=== PATIENT | female | born 1950 | race Two or more races ===

== ENCOUNTER 2019-12-18 20:41 | Inpatient (IN) | payer MEDICARE, OTHER ==
[~2019-12-18] VITALS: Ht 160 cm; Wt 72.1 kg
[2019-12-18 22:00] VITALS: BP 148/68
--- NOTE | 2019-12-18 22:00 | NUR ---
GPS RN-NOTE:ADMISSION ADMITTED A 69-YR OLD FEMALE, FROM [facility]. ADMITTED ON A 5150 FOR DTS. PER HOLD, PT ADMITTED DUE TO SUICIDAL IDEATION WITH A PLAN TO WALK INTO TRAFFIC. UPON FACE TO FACE ASSESSMENT, PATIENT A/OX3, ANXIOUS, CRYING AND ARGUMENTATIVE. AMBULATORY WITH STEADY GAIT. PT WAS ADVISED OF HER HOLD. PT'S RIGHTS HANDBOOK AND A GUIDE TO PRESCRIPTION MEDICATIONS GIVEN. IN NO APPARENT DISTRESS NOTED. PT BELONGINGS WERE INVENTORIED AND CHECKED FOR CONTRABAND. PT. IS UNDER THE PSYCHIATRIC CARE OF DR. BOWMAN ORDERS OBTAINED AND THE MEDICAL CARE OF REY OBREGON. SKIN BODY ASSESSMENT DONE. BED LOCKED AND PLACED IN LOWEST POSITION TO MAINTAIN SAFETY. WILL CONTINUE TO MONITOR Q15 MINS ROUNDS FOR SAFETY AND BEHAVIOR. PATIENT'S DAUGHTER ANDREW JERRY NOTIFIED OF THE ADMISSION. Addendum: 12/19/19 at 0554 by NICOLE HOOD RN PATIENT STATED SHE GOT HER FLU AND PNEUMONIA VACCINE AT [facility] ON 12/17/2019.
[2019-12-18] MEDS ORDERED: MAG HYDROX/AL HYDROX/SIMETH 30 ML UDC PO PRN (22:30)
[2019-12-18] MEDS ORDERED: BLOOD SUGAR DIAGNOSTIC 1 EACH STRIP IN ONE (22:30)
[2019-12-18] MEDS ORDERED: ACETAMINOPHEN 325 MG TABLET PO PRN (22:30)
[2019-12-18] MEDS ORDERED: LORAZEPAM 0.5 MG TABLET PO PRN (22:30)
[2019-12-18] MEDS ORDERED: ACET-907 PO (22:47)
[2019-12-18] MEDS ORDERED: CARV6.252 PO (22:47)
[2019-12-18] MEDS ORDERED: BLOO-1672 MC (22:47)
[2019-12-18] MEDS ORDERED: ATOR20TA PO (22:47)
[2019-12-18] MEDS ORDERED: CLON0.1T PO (22:47)
[2019-12-18] MEDS ORDERED: ASPI-992 PO (22:47)
[2019-12-18] MEDS ORDERED: HYDR-4384 PO (22:47)
[2019-12-18] MEDS ORDERED: ZOLP5TAB2 PO (22:47)
[2019-12-18] MEDS ORDERED: AMLO10TA4 PO (22:47)
[2019-12-18] MEDS ORDERED: DOCU100C36 PO (22:47)
[2019-12-18] MEDS ORDERED: NITR100C6 PO (22:47)
[2019-12-18] MEDS ORDERED: GABA-532 PO (22:47)
[2019-12-18] MEDS ORDERED: PHEN1SUP RC (22:47)
[2019-12-18] MEDS ORDERED: INSU100V39 SQ (22:57)
[2019-12-18] MEDS ORDERED: CARVEDILOL 6.25 MG TABLET PO SCH (23:30)
[2019-12-18] MEDS ORDERED: DOCUSATE SODIUM 100 MG CAPSULE PO PRN (23:30)
[2019-12-18] MEDS ORDERED: CLONIDINE HCL 0.1 MG TABLET PO PRN (23:30)
[2019-12-18] MEDS: TEMAZEPAM 7.5 MG CAPSULE PO PRN (23:50)
--- NOTE | 2019-12-18 23:50 | NUR ---
GPS-RN NOTE: INSOMNIA PATIENT C/O INABILITY TO SLEEP. ADMINISTERED RESTORIL 7.5MG PO ORDERED. WILL CONTINUE TO MONITOR FOR PATIENT'S SAFETY.
[2019-12-19] MEDS ORDERED: INSULIN REGULAR, HUMAN 100 UNIT/ML 3 ML VIAL SQ PRN
[2019-12-19] MEDS ORDERED: DEXTROSE 50%-WATER 50 ML DISP.SYRIN IV PRN ×2
[2019-12-19] MEDS: HYDROCODONE/APAP 5/325MG TABLET PO PRN ×2 (00:50→10:31)
--- NOTE | 2019-12-19 00:50 | NUR ---
GPS-RN NOTE: C/O ABDOMINAL PAIN PATIENT C/O ABDOMINAL PAIN ON A PAIN SCALE OF 7/10. ADMINISTERED NORCO 5/325MG PO ORDERED. WILL CONTINUE TO REASSESS.
[2019-12-19] MEDS ORDERED: INSULIN REGULAR, HUMAN 100 UNIT/ML 3 ML VIAL ONE (01:35)
[2019-12-19] MEDS: *INSULIN REGULAR(HUMULIN R)HUM 100 UNIT/ML VIAL SQ PRN ×3 (02:02→21:52)
[2019-12-19] MEDS ORDERED: BLOOD SUGAR DIAGNOSTIC 1 EACH STRIP VI SCH (07:30)
[2019-12-19 07:36] LABS: CHOLESTEROL 147 mg/dL (<200); HDL CHOLESTEROL 47 mg/dL (40-60); LDL 79 mg/dL (0-99); TRIGLYCERIDES 149 mg/dL (30-150)
[2019-12-19 07:37] LABS: ALBUMIN 3.4 g/dL (3.4-5.0); BILIRUBIN,TOTAL 0.4 mg/dL (0.2-1.0); CALCIUM, SERUM 9.2 mg/dL (8.5-10.1); CREATININE 0.7 mg/dL (0.6-1.3); POTASSIUM 3.6 mmol/L (3.5-5.1); TOTAL PROTEIN, SERUM 7.5 g/dL (6.4-8.2)
[2019-12-19] MEDS: BLOOD SUGAR DIAGNOSTIC 1 EACH STRIP IN SCH ×4 (07:44→21:46)
[2019-12-19 08:00] VITALS: BP 152/70
[2019-12-19] MEDS: ASPIRIN 325 MG TABLET PO SCH (08:46)
[2019-12-19] MEDS: GABAPENTIN 300 MG CAPSULE PO SCH (08:46)
[2019-12-19] MEDS: AMLODIPINE BESYLATE 10 MG TABLET PO SCH (08:46)
[2019-12-19] MEDS: CARVEDILOL 6.25 MG TABLET PO SCH ×2 (08:46→17:43)
[2019-12-19] MEDS ORDERED: GABAPENTIN 100 MG CAPSULE PO SCH ×2 (09:00)
[2019-12-19] MEDS ORDERED: [UNRECOGNIZED DRUG - OTHER] RC SCH (09:00)
[2019-12-19] MEDS ORDERED: PHENYLEPHRINE HCL RC SCH (09:00)
[2019-12-19] MEDS ORDERED: COCOA BUTTER RC SCH (09:00)
--- NOTE | 2019-12-19 10:32 | NUR ---
GPS/RN -NOTES PATIENT C/O 8 RIGHT LOWER ABDOMEN. NORCO 5/325MG 1 TAB. P.O GIVEN PRN ORDER. WILL CONT. MONITORING FOR SAFETY.
[2019-12-19] MEDS: INSULIN REGULAR, HUMAN 100 UNIT/ML 3 ML VIAL SQ PRN ×2 (11:37→17:47)
--- NOTE | 2019-12-19 12:00 | NUR ---
FAMILY CONTACT: SW contacted pts daughter Liliane ([phone]) for treatment and discharge planning. Daughter states pt is able to return back [place] [facility] [address] [facility] [address] where she lives alone. Per daughter, she provides support to pt and states pt has never had any psychiatric hospitalizations but does state that pt current takes antidepressants and states that about 30 years ago pt attempted to commit suicide twice.
--- NOTE | 2019-12-19 14:20 | NUR ---
GROUP NOTE: NAVYA encouraged pt to attend group therapy on this present day. Pt refused stating she didn't want to attend a group due to her wanting to be discharged home due to her not being able to have her phone on the unit. Pt states that she is going "crazy" without her phone and wants it. SW provided empathetic listening and provided her with alternative activities such as reading a book or coloring. Pt refused and stated all she wanted was to play her gambling games on her phone. NAVYA will continue to encourage pt to attend group milieu.
--- NOTE | 2019-12-19 14:25 | NUR ---
INITIAL DISCHARGE PLAN: Pt wishes to return home. Per pts daughter Liliane ([phone]) pt is able to [facility] back [facility] [address] [address] where she lives alone. SW will help form a safe and proper discharge plan in collaboration with .
[2019-12-19 16:00] VITALS: BP 140/71
--- NOTE | 2019-12-19 17:19 | NUR ---
GPS/RN-NOTES RECEIVED T.O [facility]. NOTED AND CARRIED OUT.
[2019-12-19] MEDS ORDERED: ACETAMINOPHEN W/ CODEINE#3 1 EA TABLET PO PRN (18:00)
[2019-12-19 19:52] VITALS: BP 116/58
[2019-12-19] MEDS: NITROFURANTOIN/NITROFURAN MAC 100 MG CAPSULE PO SCH (21:18)
[2019-12-19] MEDS: MIRTAZAPINE 15 MG TABLET PO SCH (21:19)
[2019-12-19] MEDS: ATORVASTATIN 40 MG TABLET PO SCH (21:19)
[2019-12-19] MEDS: PHENYLEPHRINE/SHK LV/MO/PET,WH 30 GM TUBE RC SCH (21:54)
[2019-12-19] MEDS ORDERED: INSULIN GLARGINE, 100 UNIT/ML CARTRIDGE SQ SCH (22:00)
[2019-12-19] MEDS: TEMAZEPAM 7.5 MG CAPSULE PO PRN (22:24)
--- NOTE | 2019-12-19 22:25 | NUR ---
GPS-RN NOTE: INSOMNIA PATIENT C/O INABILITY TO SLEEP. ADMINISTERED RESTORIL 7.5MG PO ORDERED. WILL CONTINUE TO MONITOR FOR PATIENT'S SAFETY.
[2019-12-20] MEDS: CARVEDILOL 6.25 MG TABLET PO SCH ×2 (06:06→16:40)
[2019-12-20 07:13] LABS: BASOPHILS % (AUTO) 0.5 % (0.0-2.0); EOSINOPHILS % (AUTO) 4.3 % (0.0-6.0); HEMATOCRIT 45 % (33-45); HEMOGLOBIN 14.5 g/dL (11.5-14.8); LYMPHOCYTES # (AUTO) 2.1 /CMM (0.8-4.8); LYMPHOCYTES % (AUTO) 26.4 % (20.0-44.0); MEAN CORPUSCULAR HGB CONC 32 g/dl (31.0-36.0); MEAN CORPUSCULAR VOLUME 91 fL (82-100); MONOCYTES # (AUTO) 0.9 /CMM (0.1-1.30); MONOCYTES % (AUTO) 10.9 % (2.0-12.0); NEUTROPHILS # (AUTO) 4.7 /CMM (1.8-8.9); NEUTROPHILS % (AUTO) 57.9 % (43.0-81.0); PLATELET COUNT (AUTO) 248 /CMM (150-450); WHITE BLOOD COUNT (AUTO) 8.1 K/uL (4.3-11.0)
[2019-12-20] MEDS: BLOOD SUGAR DIAGNOSTIC 1 EACH STRIP IN SCH ×4 (07:51→21:26)
[2019-12-20] MEDS: INSULIN REGULAR, HUMAN 100 UNIT/ML 3 ML VIAL SQ PRN ×3 (07:53→17:35)
[2019-12-20 08:00] VITALS: BP 137/67
[2019-12-20] MEDS: NITROFURANTOIN/NITROFURAN MAC 100 MG CAPSULE PO SCH ×2 (08:07→21:15)
[2019-12-20] MEDS: ASPIRIN 325 MG TABLET PO SCH (08:07)
[2019-12-20] MEDS: GABAPENTIN 300 MG CAPSULE PO SCH (08:07)
[2019-12-20] MEDS: AMLODIPINE BESYLATE 10 MG TABLET PO SCH (08:08)
[2019-12-20 08:24] LABS: POTASSIUM 3.7 mmol/L (3.5-5.1)
[2019-12-20 08:25] LABS: CALCIUM, SERUM 9.1 mg/dL (8.5-10.1); CREATININE 0.7 mg/dL (0.6-1.3); MAGNESIUM 1.9 mg/dL (1.8-2.4); PHOSPHORUS 2.9 mg/dL (2.5-4.9)
[2019-12-20] MEDS: HYDROCODONE/APAP 5/325MG TABLET PO PRN ×2 (13:57→23:29)
[2019-12-20 20:02] VITALS: BP 146/74
--- NOTE | 2019-12-20 20:12 | NUR ---
GPS RN NOTE: Received patient from morning nurse. Patient in bed, awake and alert. Able to make needs known. Patient does not complain of pain or discomfort at this time. Patient breathing well, no SOB or acute respiratory distress. Breathing equal and unlabored. Patient ambulatory with steady gait. Safety precaution in place, bed in the lowest level, bed is locked, side rails x2 are up, and call light is within reach. Will continue to monitor.
[2019-12-20] MEDS: MIRTAZAPINE 15 MG TABLET PO SCH (21:14)
[2019-12-20] MEDS: ATORVASTATIN 40 MG TABLET PO SCH (21:15)
[2019-12-20] MEDS: PHENYLEPHRINE/SHK LV/MO/PET,WH 30 GM TUBE RC SCH (21:15)
[2019-12-20] MEDS: *INSULIN REGULAR(HUMULIN R)HUM 100 UNIT/ML VIAL SQ PRN (21:25)
[2019-12-20] MEDS ORDERED: INSULIN GLARGINE, 100 UNIT/ML CARTRIDGE SQ SCH ×2 (22:00)
[2019-12-20] MEDS: TEMAZEPAM 7.5 MG CAPSULE PO PRN (23:19)
--- NOTE | 2019-12-20 23:19 | NUR ---
Patient complains of pain on the side of her groin. Patient rates pain a 3 on a 0-10 numerical scale and describes it as burning. Administered PRN Tylenol per MD order. Will continue to monitor.
--- NOTE | 2019-12-20 23:20 | NUR ---
Patient verbalized difficulty sleeping. Administered PRN restoril per MD order. Will continue to monitor.
--- NOTE | 2019-12-20 23:24 | NUR ---
PRN Tylenol was not given. Patient refused.
--- NOTE | 2019-12-20 23:29 | NUR ---
Patient complains of pain on her groin area. Patient rates pain 4 on a 0-10 numerical scale and describes it as burning. Administered PRN [place] per MD order. Will continue to monitor.
[2019-12-20] MEDS ORDERED: Z GUARD REMEDY 2 OZ OINT TP PRN (23:30)
[2019-12-21] MEDS: CARVEDILOL 6.25 MG TABLET PO SCH ×2 (05:51→16:17)
[2019-12-21 05:52] VITALS: BP 131/58
[2019-12-21] MEDS: BLOOD SUGAR DIAGNOSTIC 1 EACH STRIP IN SCH ×4 (08:09→20:56)
[2019-12-21] MEDS: NITROFURANTOIN/NITROFURAN MAC 100 MG CAPSULE PO SCH ×2 (08:11→21:30)
[2019-12-21] MEDS: ASPIRIN 325 MG TABLET PO SCH (08:11)
[2019-12-21] MEDS: GABAPENTIN 300 MG CAPSULE PO SCH (08:11)
[2019-12-21] MEDS: AMLODIPINE BESYLATE 10 MG TABLET PO SCH (08:12)
[2019-12-21 08:27] VITALS: BP 139/76
[2019-12-21] MEDS: INSULIN REGULAR, HUMAN 100 UNIT/ML 3 ML VIAL SQ PRN ×2 (12:17→17:13)
[2019-12-21 16:00] VITALS: BP 132/78
[2019-12-21] MEDS: HYDROCODONE/APAP 5/325MG TABLET PO PRN (17:56)
--- NOTE | 2019-12-21 19:00 | NUR ---
RECEIVED AWAKE AND ALERT TO WHERE SHE IS. NOTED HER AMBULATION STEADY GAIT' 02 SATS 98% ROOM AIR SKIN WARM AND DRY. SPEECH CLEAR AND TALKING LOGICAL. SMILES AND TALKS TO THE OTHER PATIENTS. SHE TOLD ME ABOUT HER HEMMORHOIDS! SHE IS CALM AND COOPERATIVE AT THIS TIME. SHE IS AWARE WHERE HER ROOM IS.
[2019-12-21 19:44] VITALS: BP 139/76
[2019-12-21 20:28] VITALS: BP 130/56
[2019-12-21] MEDS: INSULIN GLARGINE, 100 UNIT/ML CARTRIDGE SQ SCH (21:25)
[2019-12-21] MEDS: *INSULIN REGULAR(HUMULIN R)HUM 100 UNIT/ML VIAL SQ PRN (21:29)
[2019-12-21] MEDS: ATORVASTATIN 40 MG TABLET PO SCH (21:30)
[2019-12-21] MEDS: MIRTAZAPINE 15 MG TABLET PO SCH (21:30)
[2019-12-21] MEDS: PHENYLEPHRINE/SHK LV/MO/PET,WH 30 GM TUBE RC SCH (21:31)
--- NOTE | 2019-12-22 04:44 | NUR ---
CLOSING NOTES: HS BLOOD SUGAR 257 COVERAGE GIVEN ORDERED. PREPH CRM GIVEN FOR HER HEMMORIODS STEADY GAIT. NO TALK OF SUICIDAL PLANNING CHEERFUL TALKATIVE RE: HER DIABETES, HOW SHE MANAGES IT HERSELF AT HOME. SLEPT AFTER RESTORIL GIVEN NORCO GIVEN FOR BACK PAIN AND EFFECTIVE
[2019-12-22] MEDS: CARVEDILOL 6.25 MG TABLET PO SCH ×2 (06:40→17:18)
[2019-12-22 08:00] VITALS: BP 115/61
[2019-12-22] MEDS: BLOOD SUGAR DIAGNOSTIC 1 EACH STRIP IN SCH ×4 (08:23→21:42)
[2019-12-22] MEDS: GABAPENTIN 300 MG CAPSULE PO SCH (08:25)
[2019-12-22] MEDS: ASPIRIN 325 MG TABLET PO SCH (08:25)
[2019-12-22] MEDS: AMLODIPINE BESYLATE 10 MG TABLET PO SCH (08:25)
[2019-12-22] MEDS: NITROFURANTOIN/NITROFURAN MAC 100 MG CAPSULE PO SCH ×2 (08:25→21:30)
--- NOTE | 2019-12-22 12:18 | NUR ---
GPS/RN [facility] UNIT COORDINATOR MADE AWARE OF PT'S BS 409 AND COVERAGE WITH 1O UNITS OF INSULIN. NO ADDITION ORDERS , GERARDO WILL SEE THE PT LATER
[2019-12-22 16:00] VITALS: BP 113/73
[2019-12-22] MEDS: INSULIN REGULAR, HUMAN 100 UNIT/ML 3 ML VIAL SQ PRN ×2 (17:21→21:46)
[2019-12-22] MEDS: INSULIN ASPART/LISPRO 100 UNIT/ML CARTRIDGE SQ SCH (18:43)
[2019-12-22 20:00] VITALS: BP 146/69
[2019-12-22] MEDS: HYDROCODONE/APAP 5/325MG TABLET PO PRN (20:12)
--- NOTE | 2019-12-22 20:12 | NUR ---
GPS RN NOTE: PAIN PT WAS C/O OF 10/23 LOWER BACK PAIN, REQUESTED ALEX, ADMIN ALEX TAYLOR @ 2013, VSS, PT TOLERATED MEDICATION, WILL REASSESS AND CONTINUE TO MONITOR Q15MIN FOR SAFETY AND BEHAVIOR Addendum: 12/22/19 at 2014 by ENRICO LEE RN CORRECTION ADMIN @ 2011
[2019-12-22] MEDS: ATORVASTATIN 40 MG TABLET PO SCH (21:30)
[2019-12-22] MEDS: MIRTAZAPINE 15 MG TABLET PO SCH (21:30)
[2019-12-22] MEDS: PHENYLEPHRINE/SHK LV/MO/PET,WH 30 GM TUBE RC SCH (21:31)
[2019-12-22] MEDS: INSULIN GLARGINE, 100 UNIT/ML CARTRIDGE SQ SCH (21:45)
[2019-12-22] MEDS: TEMAZEPAM 7.5 MG CAPSULE PO PRN (22:28)
--- NOTE | 2019-12-22 22:29 | NUR ---
GPS RN NOTE: INSOMNIA PT WAS C/O OF INSOMNIA, REQUESTED SLEEPING PILL, VSS, ADMIN RESTORIL 7.5 MG PRN @ 2228, WILL REASSESS AND CONTINUE TO MONITOR Q15MIN FOR SAFETY AND BEHAVIOR.
[2019-12-23] MEDS: CARVEDILOL 6.25 MG TABLET PO SCH ×2 (06:00→17:23)
[2019-12-23] MEDS: BLOOD SUGAR DIAGNOSTIC 1 EACH STRIP IN SCH ×4 (06:59→21:23)
[2019-12-23] MEDS: INSULIN REGULAR, HUMAN 100 UNIT/ML 3 ML VIAL SQ PRN ×2 (06:59→11:58)
[2019-12-23 08:00] VITALS: BP 148/74
[2019-12-23] MEDS: ASPIRIN 325 MG TABLET PO SCH (08:39)
[2019-12-23] MEDS: NITROFURANTOIN/NITROFURAN MAC 100 MG CAPSULE PO SCH ×2 (08:40→21:22)
[2019-12-23] MEDS: AMLODIPINE BESYLATE 10 MG TABLET PO SCH (08:40)
[2019-12-23] MEDS: GABAPENTIN 300 MG CAPSULE PO SCH (08:40)
[2019-12-23] MEDS: INSULIN ASPART/LISPRO 100 UNIT/ML CARTRIDGE SQ SCH ×2 (08:45→17:16)
--- NOTE | 2019-12-23 09:00 | NUR ---
RN NOTE-PT VISIBLE ON UNIT, INTERACTIVE W PEERS AND STAFF, MED COMPLIANT, PO INTAKE IS GOOD CURRENTLY DENYING SI HI AH VH.
[2019-12-23 14:02] LABS: BASOPHILS # (AUTO) 0.1 /CMM (0.0-0.2); BASOPHILS % (AUTO) 0.7 % (0.0-2.0); EOSINOPHILS % (AUTO) 4.1 % (0.0-6.0); HEMATOCRIT 42 % (33-45); HEMOGLOBIN 13.8 g/dL (11.5-14.8); LYMPHOCYTES % (AUTO) 26.5 % (20.0-44.0); MEAN CORPUSCULAR HGB CONC 33 g/dl (31.0-36.0); MEAN CORPUSCULAR VOLUME 90 fL (82-100); MONOCYTES # (AUTO) 0.6 /CMM (0.1-1.30); MONOCYTES % (AUTO) 8.1 % (2.0-12.0); NEUTROPHILS # (AUTO) 4.5 /CMM (1.8-8.9); NEUTROPHILS % (AUTO) 60.6 % (43.0-81.0); PLATELET COUNT (AUTO) 221 /CMM (150-450); RED BLOOD CELL COUNT(AUTO) 4.62 MIL/uL (4.0-5.2); WHITE BLOOD COUNT (AUTO) 7.4 K/uL (4.3-11.0)
[2019-12-23 14:22] LABS: CALCIUM, SERUM 9.2 mg/dL (8.5-10.1); CREATININE 0.8 mg/dL (0.6-1.3); PHOSPHORUS 3.5 mg/dL (2.5-4.9); POTASSIUM 3.7 mmol/L (3.5-5.1)
--- NOTE | 2019-12-23 14:43 | NUR ---
GROUP NOTE: SW encouraged pt to attend group therapy on this present day. Pt was asleep and not easily roused by verbal cues.
--- NOTE | 2019-12-23 15:05 | NUR ---
RN NOTE- LAB CALLED [facility], BS-371. REY AGUILERA NOTIFIED. ORDERED NOVOLOG/HUMALOG CHANGED FROM 6 UNITS BID AFTER MEALS TO 6 UNITS TID AFTER MEALS. DULY NOTED.
[2019-12-23 16:00] VITALS: BP 142/76
[2019-12-23] MEDS: MAGNESIUM HYDROXIDE 30 ML UDC PO PRN (18:31)
--- NOTE | 2019-12-23 18:32 | NUR ---
RN NOTE- PT C/O NO BM SINCE YESTERDAY. MAALOX 30 CC GIVEN AT THIS TIME
[2019-12-23 20:01] VITALS: BP 149/74
[2019-12-23] MEDS: ATORVASTATIN 40 MG TABLET PO SCH (21:22)
[2019-12-23] MEDS: MIRTAZAPINE 15 MG TABLET PO SCH (21:23)
[2019-12-23] MEDS: INSULIN GLARGINE, 100 UNIT/ML CARTRIDGE SQ SCH (21:27)
[2019-12-23] MEDS: *INSULIN REGULAR(HUMULIN R)HUM 100 UNIT/ML VIAL SQ PRN (21:30)
[2019-12-23] MEDS: PHENYLEPHRINE/SHK LV/MO/PET,WH 30 GM TUBE RC SCH (21:35)
[2019-12-23 22:35] VITALS: BP 128/89
[2019-12-23] MEDS: TEMAZEPAM 7.5 MG CAPSULE PO PRN (22:39)
--- NOTE | 2019-12-23 22:40 | NUR ---
GPS RN NOTE: INSOMNIA PT. C/O UNABLE TO SLEEP. VITALS CHECKED WNL. ADMINISTERED RESTORIL PO PRN ORDERED. WILL CONTINUE TO MONITOR.
[2019-12-24] MEDS: CARVEDILOL 6.25 MG TABLET PO SCH ×2 (05:04→17:25)
[2019-12-24] MEDS: INSULIN REGULAR, HUMAN 100 UNIT/ML 3 ML VIAL SQ PRN ×3 (06:35→16:51)
[2019-12-24] MEDS: BLOOD SUGAR DIAGNOSTIC 1 EACH STRIP IN SCH ×4 (06:41→21:36)
[2019-12-24 08:00] VITALS: BP 124/66
--- NOTE | 2019-12-24 08:10 | NUR ---
RN NOTE- SPOKE W REY AGUILERA REGARDING YESTERDAYS ORDER CHANGE FOR HUMALOG 6 U AT EACH MEAL. ORIGINAL ORDER WAS HUMALOG 6 U AT AM MEAL AND PM MEAL. CR[facility] YESTERDAY AFTERNOON BS-371. AT THAT TIME UPON NOTIFICATION, REY AGUILERA ORDERED HUMALOG 6 U AFTER BREAKFAST, AFTER LUNCH AND AFTER DINNER. CONTINUE USING REGULAR SSI ORDERED.
[2019-12-24] MEDS: ASPIRIN 325 MG TABLET PO SCH (08:54)
[2019-12-24] MEDS: NITROFURANTOIN/NITROFURAN MAC 100 MG CAPSULE PO SCH ×2 (08:54→21:19)
[2019-12-24] MEDS: AMLODIPINE BESYLATE 10 MG TABLET PO SCH (08:54)
[2019-12-24] MEDS: GABAPENTIN 300 MG CAPSULE PO SCH (08:55)
[2019-12-24] MEDS: INSULIN ASPART/LISPRO 100 UNIT/ML CARTRIDGE SQ SCH ×3 (08:57→17:54)
[2019-12-24 16:00] VITALS: BP 128/80
[2019-12-24 20:01] VITALS: BP 148/77
[2019-12-24] MEDS: MIRTAZAPINE 15 MG TABLET PO SCH (21:20)
[2019-12-24] MEDS: ATORVASTATIN 40 MG TABLET PO SCH (21:20)
[2019-12-24] MEDS: TEMAZEPAM 7.5 MG CAPSULE PO PRN (21:20)
--- NOTE | 2019-12-24 21:20 | NUR ---
rn gps notes patient requested for sleep medication states " can i have sleep medication or else i wont be able to sleep and would like to try to sleep early tonight". prn restoril offered and given as ordered vs wnl. will continue to monitor for effectiveness.
[2019-12-24] MEDS: PHENYLEPHRINE/SHK LV/MO/PET,WH 30 GM TUBE RC SCH (21:36)
[2019-12-24] MEDS: INSULIN GLARGINE, 100 UNIT/ML CARTRIDGE SQ SCH (21:38)
[2019-12-24] MEDS: *INSULIN REGULAR(HUMULIN R)HUM 100 UNIT/ML VIAL SQ PRN (21:42)
[2019-12-25] MEDS: CARVEDILOL 6.25 MG TABLET PO SCH ×2 (05:35→16:44)
[2019-12-25] MEDS: BLOOD SUGAR DIAGNOSTIC 1 EACH STRIP IN SCH ×4 (07:32→21:38)
[2019-12-25 08:00] VITALS: BP 102/52
[2019-12-25] MEDS: ASPIRIN 325 MG TABLET PO SCH (08:22)
[2019-12-25] MEDS: GABAPENTIN 300 MG CAPSULE PO SCH (08:22)
[2019-12-25] MEDS: AMLODIPINE BESYLATE 10 MG TABLET PO SCH (08:23)
[2019-12-25] MEDS: INSULIN ASPART/LISPRO 100 UNIT/ML CARTRIDGE SQ SCH ×2 (08:57→12:26)
[2019-12-25] MEDS: INSULIN REGULAR, HUMAN 100 UNIT/ML 3 ML VIAL SQ PRN ×2 (12:23→17:39)
--- NOTE | 2019-12-25 12:31 | NUR ---
GROUP NOTE: SW encouraged pt to attend group on this day. Pt was on the phone with her daughter and stated she would attend at a later time.
[2019-12-25 16:00] VITALS: BP 142/92
--- NOTE | 2019-12-25 17:42 | NUR ---
GPS RN NOTE: PER DIGITAL COMMUNITY MANAGER FELA ALEXANDRA DISCONTINUE HUMALOG U100 INSULIN, ORDER PLACED AND CARED OUT.
[2019-12-25 19:59] VITALS: BP 144/67
[2019-12-25] MEDS: MAGNESIUM HYDROXIDE 30 ML UDC PO PRN (20:33)
--- NOTE | 2019-12-25 20:35 | NUR ---
GPS RN NOTE: CONSTIPATION PT. C/O OF CONSTIPATION. ADMINISTERED MILK OF MAGNESIA 30 ML PO PRN ORDERED. WILL CONTINUE TO MONITOR.
[2019-12-25] MEDS: ATORVASTATIN 40 MG TABLET PO SCH (21:29)
[2019-12-25] MEDS: MIRTAZAPINE 15 MG TABLET PO SCH (21:29)
[2019-12-25] MEDS: PHENYLEPHRINE/SHK LV/MO/PET,WH 30 GM TUBE RC SCH (21:31)
[2019-12-25] MEDS: *INSULIN REGULAR(HUMULIN R)HUM 100 UNIT/ML VIAL SQ PRN (21:43)
[2019-12-25] MEDS: INSULIN GLARGINE, 100 UNIT/ML CARTRIDGE SQ SCH (21:45)
[2019-12-25] MEDS: TEMAZEPAM 7.5 MG CAPSULE PO PRN (22:02)
[2019-12-25] MEDS: HYDROCODONE/APAP 5/325MG TABLET PO PRN (23:24)
--- NOTE | 2019-12-25 23:26 | NUR ---
GPS RN NOTE: PAIN PT. C/O OF BACK PAIN 11/22. ADMINISTERED NORCO PO PRN ORDERED. WILL CONTINUE TO MONITOR.
[2019-12-26] MEDS: HYDROCODONE/APAP 5/325MG TABLET PO PRN ×3 (03:24→21:33)
--- NOTE | 2019-12-26 03:25 | NUR ---
GPS RN NOTE: PAIN PT. C/O OF SHOULDER PAIN 11/22. ADMINISTERED NORCO PO PRN ORDERED. WILL CONTINUE TO MONITOR.
[2019-12-26] MEDS: CARVEDILOL 6.25 MG TABLET PO SCH ×2 (07:34→16:31)
[2019-12-26] MEDS: BLOOD SUGAR DIAGNOSTIC 1 EACH STRIP IN SCH ×4 (07:44→21:58)
[2019-12-26] MEDS: INSULIN REGULAR, HUMAN 100 UNIT/ML 3 ML VIAL SQ PRN ×3 (07:47→17:28)
[2019-12-26] MEDS: ASPIRIN 325 MG TABLET PO SCH (08:21)
[2019-12-26] MEDS: GABAPENTIN 300 MG CAPSULE PO SCH (08:22)
[2019-12-26] MEDS: AMLODIPINE BESYLATE 10 MG TABLET PO SCH (08:22)
[2019-12-26 08:46] VITALS: BP 143/66
--- NOTE | 2019-12-26 09:37 | NUR ---
GPS RN NOTE: NOTED REDRESS ON L/R BREAST CARPENTER ,WOUND CARE CONSULT TRIGGERED PT WAS SEEN BY MANE WOUND RN TX PLAN DONE, PICTURES IN THE CHART.
--- NOTE | 2019-12-26 09:47 | NUR ---
WOUND CARE CONSULT: PT SEEN FOR RASH TO BILATERAL BREASTFOLDS. THERE IS SLIGHT REDNESS/RASH TO LEFT ARM WELL, UNKNOWN ETIOLOGY. RECOMMENDATIONS MADE FOR BREASTFOLD RASH. DISCUSSED WITH NURSING STAFF. RN TO HAVE MD EXAMINE PT'S ARM. PT IS AMBULATORY AND CONTINENT. WILL SEE PRN. Addendum: 12/26/19 at 0949 by MANE GARCIA WNDNU Amended: Links added.
--- NOTE | 2019-12-26 12:30 | NUR ---
GPS RN NOTE: PAIN PT. C/O OF SHOULDER PAIN 09/22. ADMINISTERED NORCO PO PRN ORDERED. WILL CONTINUE TO MONITOR.
--- NOTE | 2019-12-26 14:41 | NUR ---
Family Contact: NAVYA contacted pts daughter Liliane ([phone]) and informed her that the pt is going to be discharged the following day. She stated that she does not have a car and cannot come cloth picker the pt. She stated that if the hospital can transport her in a taxi she will be waiting for the pt at her house. NAVYA stated that she will attempt to arrange a taxi ride.
[2019-12-26 16:11] VITALS: BP 108/62
--- NOTE | 2019-12-26 16:26 | NUR ---
Group Note: SW encouraged the pt to attend group therapy on 12/26/19 on discharge planning. Pt stated that she is aware that she is going to be discharged the following day and that her daughter will be waiting for her in her home. Pt expressed that she is so excited to leave and cannot wait to go back to her normal life.
[2019-12-26] MEDS: CLOTRIMAZOLE 1% 15 GM TUBE TP SCH (16:31)
[2019-12-26 20:17] VITALS: BP 146/76
--- NOTE | 2019-12-26 21:25 | NUR ---
GPS RN NOTE: PT COMPLAINING OF LOWER BACK PAIN. RATES PAIN LEVEL 7/10, NORCO 5/325MG 1TAB GIVEN PO PRN ORDERED. WILL CONTINUE TO MONITOR.
[2019-12-26] MEDS: PHENYLEPHRINE/SHK LV/MO/PET,WH 30 GM TUBE RC SCH (21:32)
[2019-12-26] MEDS: ATORVASTATIN 40 MG TABLET PO SCH (21:34)
[2019-12-26] MEDS: INSULIN GLARGINE, 100 UNIT/ML CARTRIDGE SQ SCH (22:03)
[2019-12-26] MEDS: *INSULIN REGULAR(HUMULIN R)HUM 100 UNIT/ML VIAL SQ PRN (22:13)
[2019-12-26] MEDS: MIRTAZAPINE 15 MG TABLET PO SCH (22:20)
[2019-12-26] MEDS: TEMAZEPAM 7.5 MG CAPSULE PO PRN (22:30)
[2019-12-27] MEDS: CARVEDILOL 6.25 MG TABLET PO SCH (06:27)
--- NOTE | 2019-12-27 06:40 | NUR ---
GPS RN CLOSING NOTE: PT AWAKE, A/O X3, AMBULATING IN HALLWAY. SLEPT 7HR THIS SHIFT. NO S/S OF DISTRESS. RESPIRATION EVEN AND UNLABORED WITH EQUAL RISE AND FALL OF THE CHEST ON ROOM AIR. ALL PT CARE NEEDS MET ANTICIPATED. BED IS LOCKED AND IN LOWEST POSITION. WILL CONTINUE TO MONITOR AND ENDORSE TO AM SHIFT.
[2019-12-27 07:45] VITALS: BP 104/54
[2019-12-27] MEDS: BLOOD SUGAR DIAGNOSTIC 1 EACH STRIP IN SCH ×2 (07:46→12:00)
[2019-12-27 07:57] VITALS: BP 104/54
[2019-12-27] MEDS: AMLODIPINE BESYLATE 10 MG TABLET PO SCH (07:57)
[2019-12-27] MEDS: GABAPENTIN 300 MG CAPSULE PO SCH (08:05)
[2019-12-27] MEDS: ASPIRIN 325 MG TABLET PO SCH (08:05)
[2019-12-27] MEDS: *INSULIN REGULAR(HUMULIN R)HUM 100 UNIT/ML VIAL SQ PRN (08:15)
[2019-12-27] MEDS: CLOTRIMAZOLE 1% 15 GM TUBE TP SCH (08:27)
--- NOTE | 2019-12-27 08:32 | NUR ---
DISCHARGE NOTE: [place] [address] [address] [facility] [address]. Pt will be transported via taxi at 12pm. Pts daughter, Liliane ([phone]), was notified and agrees with discharge plan. Pts mood is euthymic with congruent affect. Pt denies visual/auditory hallucinations and denies suicidal/homicidal ideation. Pt is alert and oriented x4, is referred to [facility] located at [address] [place] [address]; and encouraged to predsent at 9:00am on Monday12/30/19 for an intake appointment. . b.Broomcorn Thresher: Dr. Kelby Beth [place] [address] [place] [address]; ; fax: ([phone]). Appt 01/01/20 at 1:30pm Addendum: 12/27/19 at 0834 by JUSTA MENDOSA SW ERROR NOTE
--- NOTE | 2019-12-27 08:34 | NUR ---
DISCHARGE NOTE: [place] [address] [address] [facility] [address]. Pt will be transported via taxi at 12pm. Pts daughter, Liliane ([phone]), was notified and agrees with discharge plan. Pts mood is euthymic with congruent affect. Pt denies visual/auditory hallucinations and denies suicidal/homicidal ideation. Pt is alert and oriented x4, is ambulatory and appears appropriately dressed and groomed. Pt was referred to [facility] located at [address] [place] [address]; and encouraged to call at 9:00am on Monday12/30/19 for an intake over the phone. Pts daughter was also advised and stated she would assist pt in making the call. Pt will follow up with Business System Consultant: Dr. Kelby Beth [place] [address] [place] [address]; ; fax: ([phone]). Appt 01/01/20 at 1:30pm. The multidisciplinary exit care form was done, printed, signed, and given to the patient.
--- NOTE | 2019-12-27 12:15 | NUR ---
GPS/RN PT DISCHARGE HOME VIA TAXI WITH VOUCHER PROVIDED.PT A/O X4 VSS NO ACUTE DISTRESS NOTED NO SI/HI AT THE TIME OF DISCHARGE. EXIT CARE INSTRUCTIONS AND PRESCRIPTIONS GIVEN AND UNDERSTOOD. PROPERTY RETURNED. REFUSED SKIN PICTURES TAKEN ON DISCHARGE. ACCOMPANIED TO THE TAXI IN FRONT OF THE HOSPITAL.
== END 2019-12-27 12:15 | disposition home or self-care (01) | DRG 885 ==
LOC: GPS 20:41
PROVIDERS: ADMIT Psychiatry & Neurology Psychiatry; ATTEND Internal Medicine
DX: F33.9 Major depressive disorder, recurrent, unspecified (principal); E11.65 Type 2 diabetes mellitus with hyperglycemia; R45.851 Suicidal ideations; N39.0 Urinary tract infection, site not specified; F29 Unspecified psychosis not due to a substance or known physiological condition; F41.9 Anxiety disorder, unspecified; I10 Essential (primary) hypertension; I25.10 Atherosclerotic heart disease of native coronary artery without angina pectoris; K64.9 Unspecified hemorrhoids; Z86.73 Personal history of transient ischemic attack (TIA), and cerebral infarction without residual deficits; Z91.5 Personal history of self-harm; E78.5 Hyperlipidemia, unspecified
CPT/HCPCS: 36415; 80048-TC; 80053-TC; 80061-TC; 82962-TC; 83735-TC; 84100-TC; 85025-TC; 87081-TC; 87086-TC; J1815